=== PATIENT | female | born 1995 | race Caucasian/White ===

== ENCOUNTER 2018-05-22 00:19 | Emergency (ER) | payer OTHER ==
[~2018-05-22] VITALS: Ht 157.5 cm; Wt 69.9 kg
[2018-05-22] MEDS ORDERED: TOBRADEX ST EYE5 ML OP (02:38)
== END 2018-05-22 02:50 | disposition home or self-care (01) ==
LOC: ER 00:19
DX: H10.12 Acute atopic conjunctivitis, left eye (principal)